=== PATIENT | female | born 1955 | race Caucasian/White ===

== ENCOUNTER → 2017-04-19 | Outpatient (CLI) | payer BC | LOC: FIMAGING 13:05 | PROVIDERS: ATTEND Registered Nurse | DX: M79.674 Pain in right toe(s) (principal) ==

== ENCOUNTER → 2017-11-03 | Outpatient (CLI) | payer BC | LOC: FIMAGING 14:38 | PROVIDERS: ATTEND Family Medicine | DX: Z12.31 Encounter for screening mammogram for malignant neoplasm of breast (principal) | CPT/HCPCS: G0202 ==

== ENCOUNTER → 2018-09-21 | Outpatient (CLI) | payer BC | LOC: FIMAGING 10:08 | PROVIDERS: ATTEND Family Medicine | DX: M79.645 Pain in left finger(s) (principal); M18.32 Unilateral post-traumatic osteoarthritis of first carpometacarpal joint, left hand ==